=== PATIENT | male | born 1990 ===

== ENCOUNTER 2018-06-02 23:58 | Emergency (ER) | payer BC ==
[~2018-06-02] VITALS: Ht 172.7 cm; Wt 71.7 kg
[~2018-06-02 23:58] MED LIST: AMOX500 PO; AZIT250 PO; CEPH500 PO; FAMO20 PO; IBUP100S; LORA1 PO; PROCODE120 PO; RXPROM25S PR; SULTRIDS PO
[2018-06-03] MEDS ORDERED: ESCI20 PO (00:08)
[2018-06-03 00:55] LABS: Calcium, Ionized (POC) 1.08 mmol/L (1.10-1.46); Chloride (POC) 96 mmol/L (98-108); Creatinine (POC) 0.9 mg/dL (0.8-1.3); Glucose (ISTAT POC) 104 mg/dL (70-99); Hemoglobin (POC) 15.3 g/dL (13.5-17.5); Potassium (POC) 3.6 mmol/L (3.5-5.5); Sodium (POC) 135 mmol/L (135-148); Total CO2 (POC) 28 mmol/L (21-32)
[2018-06-03] MEDS ORDERED: LOPE2C PO (01:27)
[2018-06-03 01:35] LABS: Adenovirus F 40/41 Not Detected (NOT DETECT); Astrovirus Not Detected (NOT DETECT); Cryptosporidium Not Detected (NOT DETECT); Cyclospora Cayetanensis Not Detected (NOT DETECT); E. Coli O157 Not Detected (NOT DETECT); Entamoeba Histolytica Not Detected (NOT DETECT); Enteroaggregative E. coli-EAEC Not Detected (NOT DETECT); Enteropathogenic E. coli-EPEC Not Detected (NOT DETECT); Enterotoxigenic E. coli-ETEC Not Detected (NOT DETECT); Giardia Lamblia Not Detected (NOT DETECT); Norovirus GI/GII Not Detected (NOT DETECT); Plesiomonas Shigelloides Not Detected (NOT DETECT); Rotavirus A Not Detected (NOT DETECT); Salmonella Sp Not Detected (NOT DETECT); Sapovirus Not Detected (NOT DETECT); Shiga Toxin-prod E. coli-STEC Not Detected (NOT DETECT); Shigella/Enteroin E. coli-EIEC Not Detected (NOT DETECT); Vibrio Cholerae Not Detected (NOT DETECT); Vibrio Sp Not Detected (NOT DETECT); Yersinia Enterocolitica Not Detected (NOT DETECT)
[2018-06-03 03:08] LABS: Campylobacter Sp Detected (NOT DETECT)
== END 2018-06-03 01:48 | disposition home or self-care (01) ==
LOC: ER 23:58
PROVIDERS: Emergency Medicine
DX: R19.7 Diarrhea, unspecified (principal); R10.9 Unspecified abdominal pain; Z79.899 Other long term (current) drug therapy
CPT/HCPCS: 36415; 80047; 85014; 87507; 99284

== ENCOUNTER → 2021-12-03 | Outpatient (CLI) | payer BC ==
[~2021-12-03] MED LIST changes: +ESCI20 PO; +LOPE2C PO
[2021-12-05 19:06] LABS: CHLAMYDIA BY NAA Negative (Negative); GONOCOCCUS BY NAA Negative (Negative); TRICH VAG BY NAA Negative (Negative)
== END | disposition home or self-care (01) ==
LOC: LAB 15:17 → LAB SHORT 15:17
PROVIDERS: Family Medicine
DX: R30.0 Dysuria (principal)
CPT/HCPCS: 87491; 87591; 87661

== ENCOUNTER → 2022-09-20 | Outpatient (CLI) | payer BC ==
[2022-09-21 23:09] LABS: CHLAMYDIA TRACHOMATIS, NAA Negative (Negative)
== END | disposition home or self-care (01) ==
LOC: LAB SHORT 15:30
PROVIDERS: Family Medicine
DX: Z20.2 Contact with and (suspected) exposure to infections with a predominantly sexual mode of transmission (principal)
CPT/HCPCS: 87491; 87591

== ENCOUNTER → 2022-12-30 | Outpatient (CLI) | payer BC | END | disposition home or self-care (01) | LOC: LAB SHORT 15:12 → LAB 15:12 | DX: J02.9 Acute pharyngitis, unspecified (principal) | CPT/HCPCS: 87081 ==

== ENCOUNTER → 2023-01-07 | Outpatient (CLI) | payer BC ==
[2023-01-10 01:11] LABS: CHLAMYDIA TRACHOMATIS, NAA Negative (Negative)
== END | disposition home or self-care (01) ==
LOC: LAB 15:30 → LAB SHORT 15:30
PROVIDERS: Family Medicine
DX: N34.2 Other urethritis (principal)
CPT/HCPCS: 87491; 87591

== ENCOUNTER → 2024-07-07 | Outpatient (CLI) | payer OTHER ==
[2024-07-11 12:58] LABS: APTIMA MEDIA TYPE Urine; C. TRACHOMATIS BY TMA Negative (Negative); N. GONORRHOEAE BY TMA Negative (Negative); SPECIMEN SOURCE Urine
== END ==
LOC: LAB SHORT 16:40 → LAB 16:40
PROVIDERS: Physician Assistant
DX: Z72.51 High risk heterosexual behavior (principal)
CPT/HCPCS: 87086; 87491; 87591